=== PATIENT | male | born 1985 | race Caucasian/White ===

== ENCOUNTER 2019-10-12 19:38 | Emergency (ER) | payer OTHER, SELFPAY ==
[2019-10-12 19:40] VITALS: BP 149/90; PULSE 97; RESP 20; TEMP 36.9; O2SAT 100
--- NOTE | 2019-10-12 20:18 | ED.URI ---
HPI - URI/Sore Throat General Chief Complaint: Upper Respiratory Infection Stated Complaint: cough/congestion/runny nose Time Seen by Provider: 10/12/19 19:46 Source: patient Mode of arrival: ambulatory Limitations: no limitations History of Present Illness HPI Narrative: This is a 33 year old male that presents to the ER for cold symptoms since this morning. Reports cough, congestion, rhinorrhea, and sore throat. Denies fever, chest pain or shortness of breath. Related Data Allergies Allergy/AdvReac Type Severity Reaction Status Date / Time No Known Allergies Allergy Verified 10/12/19 19:48 Review of Systems Review of Systems: Narrative: CONSTITUTIONAL: Denies fever ENT: Reports rhinorrhea, congestion, sore throat. Denies otalgia. CARDIOVASCULAR: Denies chest pain RESPIRATORY: Reports cough. Denies dyspnea. All systems reviewed & are unremarkable except as noted in HPI and below PMFSH Family History Family History (System 06/10/19 @ 07:52 by Hazel Garcia) Father Gout Social History Social History (System 06/10/19 @ 07:52 by Hazel Garcia) Smoking status: Never smoker Alcohol intake: never Substance use: never Gender identity (if verbalized by the patient): Male Exam Narrative: Exam Narrative: GENERAL: Well-appearing, well-nourished, and in no acute distress. HEAD: Normocephalic, atraumatic. EYES: EOMI. ENT: Nares clear, no rhinorrhea or epistaxis. Mucous membranes moist. Oropharynx without tonsillar hypertrophy exudate or other lesions. Bilateral TMs pearly matute non-bulging NECK: Supple. No adenopathy or masses. CHEST: Clear to auscultation. No respiratory distress. No wheezes rales or rhonchi HEART: Regular rate and rhythm. No murmur heard. Normal peripheral pulses. EXTREMITIES: Normal range of motion. No edema. SKIN: Warm, dry, no rash. NEURO: No focal deficits. Alert and oriented x3. PSYCH: Normal mood and affect Course Vital Signs Vital signs: Vital Signs Temperature 98.5 F 10/12/19 19:40 Pulse Rate 97 10/12/19 19:40 Respiratory Rate 20 10/12/19 19:40 Blood Pressure 149/90 H 10/12/19 19:40 Pulse Oximetry 100 10/12/19 19:40 Temperature 98.5 F 10/12/19 19:40 Pulse Rate 97 10/12/19 19:40 Respiratory Rate 20 10/12/19 19:40 Blood Pressure 149/90 H 10/12/19 19:40 Pulse Oximetry 100 10/12/19 19:40 MDM - URI/Sore Throat MDM Narrative Medical decision making narrative: Patient presents the emergency department for cold symptoms since this morning. He is afebrile and nontoxic-appearing. Lungs are clear on exam. Influenza screen is negative. Patient was instructed on symptomatic care of viral infection. He is to follow-up with primary care doctor. He was given warnings to return to the ER Lab Data Attestation: I reviewed the patient's lab results. Labs: Influenza A Screen Negative Reference Range: Negative Influenza B Screen Negative Reference Range: Negative Critical Care Time Critical Care Time Critical Care Time: No Discharge Plan Discharge Clinical Impression: Upper respiratory infection Qualifiers: URI type: unspecified viral URI Qualified Code(s): J06.9 - Acute upper respiratory infection, unspecified Patient Disposition: Home, Self-Care Condition: Stable Instructions: Cold Symptoms (ED) Additional Instructions: Return to the emergency department for worsening symptoms, or any other concerns Remain well-hydrated, get plenty of rest. Take Tylenol or Motrin [id number] for pain as needed. Flonase for nasal congestion. Zyrtec for runny nose. Lozenges or Chloraseptic spray for sore throat. Follow up with your primary care doctor Follow-up/Referrals: Lalito Baldwin MD [Primary Care Provider] - 3 Days
== END 2019-10-12 20:42 | disposition home or self-care (01) ==
PROVIDERS: Emergency Provider Emergency Medicine; PCP Family Medicine
DX: J06.9 Acute upper respiratory infection, unspecified (principal); M10.9 Gout, unspecified
CPT/HCPCS: 87804; 99283

== ENCOUNTER 2020-12-03 21:20 | Emergency (ER) | payer OTHER, SELFPAY ==
--- NOTE | ~2020-12-03 | XR_ITS ---
EXAMINATION: XR ankle LT min 3V DATE: 12/03/2020 21:46 INDICATION: Lateral ankle pain. TECHNIQUE: 4 views of left ankle were obtained. COMPARISON: None. FINDINGS: Bone alignment is normal. No fracture. Joint spaces are normal. There are enthesophytes at the posterior and plantar aspects of calcaneal tuberosity. There is ankle soft tissue swelling. IMPRESSION: 1. No fracture. Reviewed, dictated and finalized at location A. IMPRESSION: 1. No fracture.
[2020-12-03 21:22] VITALS: BP 146/90; PULSE 95; RESP 18; TEMP 36; O2SAT 98
--- NOTE | 2020-12-03 22:32 | ED.LOWEXIN ---
HPI - Extremity Injury (Lower) General Chief Complaint: Extremity Injury, Lower Stated Complaint: left ankle injury - missed a step and rolled it Time Seen by Provider: 12/03/20 22:24 Source: patient Mode of arrival: ambulatory Limitations: no limitations History of Present Illness HPI Narrative: 34-year-old with no major medical problems here with complaints of left ankle pain and swelling. Patient states that he is rolled his ankle while going down the steps. Complains of pain on the midfoot area. He denies any other injuries. MD complaint: ankle injury and foot injury Onset (ago): hour(s) (2) Type of Injury: inversion Place: home Severity: moderate Relieving factors: nothing Exacerbating factors: movement Associated symptoms: swelling Other symptoms: none Related Data Allergies Allergy/AdvReac Type Severity Reaction Status Date / Time No Known Allergies Allergy Verified 12/03/20 21:24 Review of Systems Review of Systems: All systems reviewed & are unremarkable except as noted in HPI and below Constitutional: Constitutional: Reports no additional constitutional complaints Eyes: Eyes: Reports no additional eye complaints ENT: Reports system reviewed and no additional complaints, except as documented Cardiovascular: Cardiovascular: Reports no additional cardiovascular complaints Respiratory: Respiratory: Reports no additional respiratory complaints Gastrointestinal: Gastrointestinal: Reports no additional gastrointestinal complaints Musculoskeletal: Musculoskeletal: Reports as per HPI Integumentary/Breasts: Skin/Breast: Reports system reviewed and no additional complaints, except as docu Neurologic: Reports system reviewed and no additional complaints, except as documented PMFSH Family History Family History Father Gout Social History Social History Smoking status: Never smoker Alcohol intake: never Substance use: never Gender identity (if verbalized by the patient): Male Sexual Orientation (if Verbalized by the Patient): Straight or Heterosexual Exam Narrative: Exam Narrative: GENERAL: Well-appearing, well-nourished, and in no acute distress. HEAD: Normocephalic, atraumatic. EYES: PERRLA and EOMI. NECK: Supple. CHEST: Clear to auscultation. No respiratory distress. HEART: Regular rate and rhythm. No murmur heard. Normal peripheral pulses. ABDOMEN: Soft, nontender, nondistended, normal active bowel sounds. EXTREMITIES: Normal range of motion. No edema.mild STS of the left ankle SKIN: Warm, dry, no rash. NEURO: No focal deficits. Alert and oriented x3. PSYCH: Normal mood and affect. Course Course Emergency Course: Inform patient about his Xray findings , advised him to use wrap , ice and take pain medication as prescribed. Vital Signs Vital signs: Vital Signs Temperature 36.0 C L 12/03/20 21:22 Pulse Rate 95 12/03/20 21:22 Respiratory Rate 18 12/03/20 21:22 Blood Pressure 146/90 H 12/03/20 21:22 Pulse Oximetry 98 12/03/20 21:22 Temperature 36.0 C L 12/03/20 21:22 Pulse Rate 95 12/03/20 21:22 Respiratory Rate 18 12/03/20 21:22 Blood Pressure 146/90 H 12/03/20 21:22 Pulse Oximetry 98 12/03/20 21:22 MDM - Extremity Injury (Lower) Imaging Data Radiologist's impression: ITS Impressions Ankle X-Ray 12/03/20 21:47 IMPRESSION: 1. No fracture. Discharge Plan Discharge Clinical Impression: Ankle sprain and strain Patient Disposition: Home, Self-Care Condition: Stable Instructions: Antibiotic Form, Ankle Sprain (DC) Additional Instructions: MATT , Ice Prescriptions: New ibuprofen 600 mg tablet 600 mg PO TID PRN (Reason: pain) Qty: 20 RF: 0 Follow-up/Referrals: Lalito Baldwin MD [Primary Care Provider] - Time of Disposition: 22:38
== END 2020-12-03 22:48 | disposition home or self-care (01) ==
PROVIDERS: Emergency Provider Family Medicine; PCP Family Medicine
DX: S93.402A Sprain of unspecified ligament of left ankle, initial encounter (principal); S96.912A Strain of unspecified muscle and tendon at ankle and foot level, left foot, initial encounter; X50.9XXA Other and unspecified overexertion or strenuous movements or postures, initial encounter
CPT/HCPCS: 73610; 99283

== ENCOUNTER 2021-09-24 06:56 | Outpatient (CLI) | payer SELFPAY ==
[2021-09-24 08:22] LABS: Basophils Absolute Auto 0.1 K/mm3 (0.0-0.1); Basophils Percent Auto 0.8 % (0.2-1.2); Eosinophils Absolute Auto 0.1 K/mm3 (0-0.3); Eosinophils Percent Auto 2.2 % (0-4.4); Hematocrit 44.3 % (42.0-52.0); Hemoglobin 15.1 g/dL (14.0-18.0); Immature Granulocyte Absolute 0.01 K/mm3 (0.00-0.031); Immature Granulocyte Percent A 0.2 % (0-0.5); Lymphocytes Absolute Auto 2.22 K/mm3 (0.9-3.2); Lymphocytes Percent Auto 37.3 % (18.3-44.2); Mean Corpuscular HGB Conc 34.1 g/dl (32-36); Mean Corpuscular Hemoglobin 31.1 pg (26-34); Mean Corpuscular Volume 91.3 fl (80-100); Mean Platelet Volume 10.7 fl (7.4-10.4); Monocytes Absolute Auto 0.4 K/mm3 (0.1-0.6); Monocytes Percent Auto 7.4 % (2.6-8.5); Neutrophils Absolute Auto 3.1 K/mm3 (1.3-6.7); Neutrophils Percent Auto 52.1 % (45.5-73.1); Platelet Count Result 161 k/mm3 (150-375); Red Blood Count 4.85 M/mm3 (4.6-6.20); Red Cell Distribution Width 12.7 % (11.5-14.5)
[2021-09-24 08:39] LABS: Hemoglobin A1C 4.6 % (<5.7)
[2021-09-24 08:53] LABS: Free T4 Free Thyroxine 0.93 ng/mL (0.78-2.19); Vitamin D 25 Hydroxy 39.4 ng/mL
[2021-09-24 09:26] LABS: Creatinine Urine 182.2 mg/dL
[2021-09-24 09:29] LABS: MALB Creatinine Ratio 6.7 mg/g (0-30); Microalbumin Urine Random 12.2 mg/L (0-16.7)
[2021-09-24 14:54] LABS: Alanine Aminotransferase 24 U/L (4-50); Albumin Level 4.7 g/dL (3.5-5.1); Alkaline Phosphatase 74 U/L (38-126); Anion Gap 7 mmol/L (8-16); Aspartate Amino Transferase 24 U/L (17-59); Bilirubin,Total 0.9 mg/dL (0.2-1.3); Blood Urea Nitrogen 14 mg/dL (9-20); Calcium 9.5 mg/dL (8.4-10.2); Carbon Dioxide 32 mmol/L (22-30); Chloride 101 mmol/L (98-107); Cholesterol 174 mg/dL (0-200); Estimated Glomerular Filt Rate > 60; Glucose 112 mg/dL (65-110); HDL Direct 36 mg/dL; Sodium 140 mmol/L (137-145); Triglycerides 70 mg/dL (<150)
[2021-09-24 15:05] LABS: LDL Cholesterol Direct 130 mg/dL
[2021-09-24 15:25] LABS: Prostate Specific Antigen 0.3 ng/mL (< OR = 4.0)
== END 2021-09-24 06:57 | disposition home or self-care (01) ==
LOC: ANHLAB 06:58
PROVIDERS: PCP Family Medicine; Visit Provider Family Medicine
DX: E55.9 Vitamin D deficiency, unspecified (principal); R80.9 Proteinuria, unspecified; I10 Essential (primary) hypertension; Z12.5 Encounter for screening for malignant neoplasm of prostate; Z13.6 Encounter for screening for cardiovascular disorders; Z13.1 Encounter for screening for diabetes mellitus; Z13.29 Encounter for screening for other suspected endocrine disorder; Z13.220 Encounter for screening for lipoid disorders; Z13.0 Encounter for screening for diseases of the blood and blood-forming organs and certain disorders involving the immune mechanism
CPT/HCPCS: 36415; 80053; 80061; 82043; 82306; 83036; 84153; 84439; 84443; 84480; 85025; G0103

== ENCOUNTER 2022-05-15 16:04 | Emergency (ER) | payer SELFPAY ==
--- NOTE | ~2022-05-15 | XR_ITS ---
EXAMINATION: XR abdomen/kub 1V DATE: 05/15/2022 22:47 INDICATION: Upper abdominal pain TECHNIQUE: A supine view of the abdomen on 2 radiographs was obtained. COMPARISON: None. FINDINGS: Moderate amount of gas and stool scattered throughout the colon. No dilated loops of gas-filled bowel to suggest obstruction. A few large faceted gallstones in the right upper quadrant. Several phleboli ths in the left hemipelvis. Lung bases are clear. Heart size is normal. Bones and soft tissues are un remarkable. IMPRESSION: 1. Cholelithiasis. 2. Normal bowel gas pattern. Reviewed, dictated and finalized at location A.
[2022-05-15 17:00] VITALS: BP 142/92; PULSE 48; RESP 18; TEMP 36.3; O2SAT 100
[2022-05-15 17:19] LABS: Basophils Absolute Auto 0.1 K/mm3 (0.0-0.1); Basophils Percent Auto 0.5 % (0.2-1.2); Eosinophils Absolute Auto 0.1 K/mm3 (0-0.3); Eosinophils Percent Auto 0.9 % (0-4.4); Hematocrit 40.7 % (42.0-52.0); Hemoglobin 14.6 g/dL (14.0-18.0); Immature Granulocyte Absolute 0.03 K/mm3 (0.00-0.031); Immature Granulocyte Percent A 0.3 % (0-0.5); Lymphocytes Absolute Auto 1.36 K/mm3 (0.9-3.2); Mean Corpuscular HGB Conc 35.9 g/dl (32-36); Mean Corpuscular Hemoglobin 30.9 pg (26-34); Monocytes Absolute Auto 0.4 K/mm3 (0.1-0.6); Monocytes Percent Auto 3.9 % (2.6-8.5); Neutrophils Absolute Auto 7.8 K/mm3 (1.3-6.7); Neutrophils Percent Auto 80.4 % (45.5-73.1); Platelet Count Result 187 k/mm3 (150-375); Red Blood Count 4.73 M/mm3 (4.6-6.20); Red Cell Distribution Width 12.5 % (11.5-14.5); White Blood Count 9.7 K/mm3 (4.5-10.0)
[2022-05-15 17:35] LABS: Alanine Aminotransferase 30 U/L (6-50); Albumin Level 4.6 g/dL (3.5-5.1); Alkaline Phosphatase 79 U/L (38-126); Anion Gap 9 mmol/L (8-16); Aspartate Amino Transferase 27 U/L (17-59); Bilirubin,Total 0.8 mg/dL (0.2-1.3); Blood Urea Nitrogen 12 mg/dL (9-20); Calcium 9.1 mg/dL (8.4-10.2); Carbon Dioxide 30 mmol/L (22-30); Chloride 99 mmol/L (98-107); Estimated CRCL calculation 124 ml/min; Estimated Glomerular Filt Rate > 60; Glucose 131 mg/dL (65-110); Potassium 4.3 mmol/L (3.4-5.0); Sodium 138 mmol/L (137-145)
[2022-05-15 18:32] LABS: Add Urine Microscopic? YES; Amorphous Sediment Urine Moderate; Appearance Urine Cloudy (Clear); Bacteria Urine Trace /hpf; Bilirubin Urine Negative (Negative); Blood Urine Negative (Negative); Color Urine Yellow (Yellow); Glucose Urine UA Negative (Negative); Ketones Urine Negative (Negative); Leukocyte Esterase Ur Negative LEU/UL (Negative); Mucus Urine Rare /lpf; Nitrate Urine Negative (Negative); Protein Urine Negative (Negative); Specific Grav Ur 1.019 (1.001-1.035); Urobilinogen Urine Negative mg/dL (<2.0); WBC Urine 0-3 /hpf
--- NOTE | 2022-05-15 22:37 | ED.ABDPAIN ---
HPI - Abdominal Pain General Chief Complaint: Abdominal Pain Stated Complaint: Right Flank Pain, Vomiting Time Seen by Provider: 05/15/22 22:29 History of Present Illness HPI narrative: 36-year-old male with no medical problems presents to the emergency room for evaluation of periumbilical/epigastric pain that began several hours prior to arrival. Pain was associated with nausea multiple episodes of nonbilious nonbloody vomiting. Denies any diarrhea or constipation. Denies dysuria or fevers. Patient states that the pain resolved while he was waiting in the waiting room to be seen. Patient insists to continue evaluation to figure out what was causing me the pain. Denies any abdominal surgeries. Related Data Home Medications Medication Instructions Recorded Confirmed No Home Medications 05/15/22 05/15/22 Allergies Allergy/AdvReac Type Severity Reaction Status Date / Time No Known Allergies Allergy Verified 05/15/22 17:03 Review of Systems Review of Systems: CONSTITUTIONAL: Denies fever, chills, or sweats. EYES: Denies visual changes, redness, or discharge. ENT: Denies rhinorrhea, congestion, sore throat, or otalgia. CARDIOVASCULAR: Denies chest pain, palpitations, or edema. RESPIRATORY: Denies cough or dyspnea. GASTROINTESTINAL: Reports abdominal pain, nausea, vomiting, denies diarrhea or constipation GENITOURINARY: Denies dysuria or hematuria. SKIN: Denies rash or itching. MUSCULOSKELETAL: Denies back pain, joint pain, or myalgia. NEUROLOGIC: Denies headache, numbness, dizziness, or weakness. PSYCHIATRIC: Denies anxiety or depression. PMFSH Family History Family History Father Gout Social History Social History Smoking status: Never smoker Alcohol intake: never Substance use: never Gender identity (if verbalized by the patient): Male Sexual Orientation (if Verbalized by the Patient): Straight or Heterosexual Exam Narrative: GENERAL: Well-appearing, well-nourished, no physical limitations, and in no acute distress. HEAD: Normocephalic, atraumatic. EYES: Conjunctivae normal, PERRLA and EOMI. CHEST: Clear to auscultation. No respiratory distress. No wheezes rales or rhonchi. No tenderness. HEART: Regular rate and rhythm. No murmur heard. Normal peripheral pulses. ABDOMEN: Soft, nontender, nondistended, normal active bowel sounds. BACK: No CVA tenderness EXTREMITIES: Normal range of motion. No edema. No clubbing or cyanosis SKIN: Warm, dry, no rash. No noted wounds NEURO: No focal deficits. Alert and oriented x3. MAEW. CN's II-XI intact bilaterally, normal gait PSYCH: Cooperative. Normal mood and affect. Course Vital Signs Vital signs: Vital Signs Temperature 36.3 C L 05/15/22 17:00 Pulse Rate 48 L 05/15/22 17:00 Respiratory Rate 18 05/15/22 17:00 Blood Pressure 142/92 H 05/15/22 17:00 Pulse Oximetry 100 05/15/22 17:00 Oxygen Delivery Room Air 05/15/22 17:00 Temperature 36.3 C L 05/15/22 17:00 Pulse Rate 48 L 05/15/22 17:00 Respiratory Rate 18 05/15/22 17:00 Blood Pressure 142/92 H 05/15/22 17:00 Pulse Oximetry 100 05/15/22 17:00 Oxygen Delivery Room Air 05/15/22 17:00 MDM - Abdominal Pain MDM Narrative Medical decision making narrative: 36-year-old male presents the emergency room for complaints of upper abdominal pain that started just prior to arrival. Patient waited in the waiting room for 6 hours, and when he came back to the department be evaluated his abdominal pain had resolved. Patient was still requested to be evaluated to see what the cause of the pain was. CBC CMP and lipase were all within normal limits. KUB shows a moderate to severe fecal load in his upper abdomen. Discussed findings with patient, said he just needs to have a couple bowel movements and he is going to feel better. Lab Data Result diagrams: 05/15/22
[2022-05-15 22:40] VITALS: BP 122/84; PULSE 50; RESP 16; O2SAT 100
[2022-05-15 22:48] LABS: Lipase 45 U/L (23-300)
== END 2022-05-15 23:26 | disposition home or self-care (01) ==
PROVIDERS: Emergency Medicine; Emergency Provider Nurse Practitioner Family; PCP Family Medicine
DX: R10.13 Epigastric pain (principal); R10.33 Periumbilical pain
CPT/HCPCS: 36415; 74018; 80053; 81001; 83690; 85025; 99283

== ENCOUNTER 2022-11-23 00:59 | Emergency (ER) | payer OTHER, SELFPAY ==
--- NOTE | ~2022-11-23 | XR_ITS ---
EXAMINATION: XR chest 1V portable DATE: 11/23/2022 01:44 INDICATION: Upper respiratory infection. TECHNIQUE: A single frontal view of the chest was obtained. COMPARISON: CT abdomen and pelvis 10/30/2015 FINDINGS: There is no pneumonia, pleural effusion, or pneumothorax. The heart size is normal. IMPRESSION: 1. No acute cardiopulmonary disease. Reviewed, dictated and finalized at location A.
[2022-11-23 01:03] VITALS: BP 143/86; PULSE 82; RESP 14; TEMP 36.7; O2SAT 99
[2022-11-23 02:31] LABS: Influenza A QL RT-PCR Positive (Negative); Influenza B QL RT-PCR Negative (Negative); SARS-CoV-2 RNA PCR Negative (Negative)
[2022-11-23 02:40] VITALS: PULSE 63; RESP 18
[2022-11-23] MEDS: IPRATROPIUM BR 0.02% INH SOLN 0.5 MG/2.5 ML VIAL 1 MG INHALATION (02:40)
[2022-11-23] MEDS: ALBUTEROL SULFATE NEB 2.5 MG/3 ML INH 10 MG INHALATION (02:40)
--- NOTE | 2022-11-23 05:02 | ED.GENADULT ---
HPI - General Adult General Chief complaint: Upper Respiratory Infection Stated complaint: URI Time Seen by Provider: 11/23/22 02:04 History of Present Illness HPI narrative: This is a 36-year-old male with a 1 week of URI symptoms. They have included cough, low energy and wheezing. Patient denies fever, sore throat, chest pain, nausea vomiting or diarrhea. patiently typically gets 1 URI a year that requires albuterol treatment for him to improve. No other complaints Related Data Home Medications Medication Instructions Recorded Confirmed No Home Medications 05/15/22 05/15/22 Allergies Allergy/AdvReac Type Severity Reaction Status Date / Time No Known Allergies Allergy Verified 05/15/22 17:03 PMFSH Family History Family History Father Gout Social History Social History Smoking status: Never smoker Alcohol intake: never Substance use: never Living arrangements: with family Gender identity (if verbalized by the patient): Male Sexual Orientation (if Verbalized by the Patient): Straight or Heterosexual Exam Narrative: APPEARANCE: No apparent distress. resting comfortably in bed Head: atraumatic. EYES: EOMI, NOSE: Atraumatic NECK: Trachea midline RESPIRATORY: No increased rate of breathing, slight end expiratory wheezing CARDIOVASCULAR: RRR, ABDOMINAL: Non-distended MUSCULOSKELETAl: No obvious deformities NEURO: Alert. Moving 4/4 extremities SKIN:: Warm, dry. Normal color PSYCHIATRIC: Normal affect Course Vital Signs Vital signs: Vital Signs Temperature 98.0 F 11/23/22 01:03 Pulse Rate 82 11/23/22 01:03 Respiratory Rate 14 11/23/22 01:03 Blood Pressure 143/86 H 11/23/22 01:03 Pulse Oximetry 99 11/23/22 01:03 Oxygen Delivery Room Air 11/23/22 01:03 Temperature 98.0 F 11/23/22 01:03 Pulse Rate 63 11/23/22 02:40 Respiratory Rate 18 11/23/22 02:40 Blood Pressure 143/86 H 11/23/22 01:03 Pulse Oximetry 99 11/23/22 01:03 Oxygen Delivery Room Air 11/23/22 01:03 Medical Decision Making MDM Narrative Medical decision making narrative: -Presentation: 36-year-old male presenting with URI symptoms and slight wheezing -DDX includes but is not limited to: viral syndrome, bronchitis, reactive airway disease -Co-morbidities complicating care: reactive airway disease -Social determinants of health: patient works as a service delivery director lives with his . -External Chart Review: None -Hx from independent Sources: none -Discussion of Management/Consultants: none -Independent interpretation of studies: chest x-ray showed no acute cardiopulmonary process. Dx tests considered but not ordered: -Procedures: -Interventions: 10 mg IM dexamethasone, Motrin, Tylenol, hour long DuoNeb treatment -Shared decision making / Disposition: on re-evaluation the patient is feeling better. His wheezing has resolved. He will be discharged with an inhaler -RX albuterol Vital Signs Vital Signs: Vital Signs Temperature 98.0 F 11/23/22 01:03 Pulse Rate 82 11/23/22 01:03 Respiratory Rate 14 11/23/22 01:03 Blood Pressure 143/86 H 11/23/22 01:03 Pulse Oximetry 99 11/23/22 01:03 Oxygen Delivery Room Air 11/23/22 01:03 Temperature 98.0 F 11/23/22 01:03 Pulse Rate 63 11/23/22 02:40 Respiratory Rate 18 11/23/22 02:40 Blood Pressure 143/86 H 11/23/22 01:03 Pulse Oximetry 99 11/23/22 01:03 Oxygen Delivery Room Air 11/23/22 01:03 Lab Data Labs: Lab Results 11/23/22 Range/Units 01:50 Influenza A (RT-PCR) Positive (Negative) Influenza B (RT-PCR) Negative (Negative) SARS-CoV-2 RNA (RT-PCR) Negative (Negative) Discharge Plan Discharge Clinical Impression: Mild reactive airways disease Patient Disposition: Home, Self-Care Condition: Stable Instru
== END 2022-11-23 04:57 | disposition home or self-care (01) ==
PROVIDERS: Emergency Provider Emergency Medicine; PCP Family Medicine
DX: J45.909 Unspecified asthma, uncomplicated (principal); Z20.822 Contact with and (suspected) exposure to COVID-19
CPT/HCPCS: 71045; 87636; 94640; 96372; 99283; J1100

== ENCOUNTER 2022-12-30 11:32 | Outpatient (CLI) | payer OTHER, SELFPAY ==
[2022-12-30 12:03] LABS: Basophils Absolute Auto 0.1 K/mm3 (0.0-0.1); Basophils Percent Auto 0.8 % (0.2-1.2); Eosinophils Absolute Auto 0.1 K/mm3 (0-0.3); Eosinophils Percent Auto 1.9 % (0-4.4); Hematocrit 38.1 % (42.0-52.0); Hemoglobin 13.3 g/dL (14.0-18.0); Immature Granulocyte Absolute 0.02 K/mm3 (0.00-0.031); Immature Granulocyte Percent A 0.3 % (0-0.5); Lymphocytes Percent Auto 32.8 % (18.3-44.2); Mean Corpuscular HGB Conc 34.9 g/dl (32-36); Mean Corpuscular Volume 88.8 fl (80-100); Mean Platelet Volume 9.9 fl (7.4-10.4); Monocytes Absolute Auto 0.4 K/mm3 (0.1-0.6); Monocytes Percent Auto 5.6 % (2.6-8.5); Neutrophils Absolute Auto 3.8 K/mm3 (1.3-6.7); Neutrophils Percent Auto 58.6 % (45.5-73.1); Platelet Count Result 177 k/mm3 (150-375); Red Blood Count 4.29 M/mm3 (4.6-6.20); Red Cell Distribution Width 12.8 % (11.5-14.5); White Blood Count 6.4 K/mm3 (4.5-10.0)
[2022-12-30 12:16] LABS: Alanine Aminotransferase 39 U/L (6-50); Albumin Level 4.5 g/dL (3.5-5.1); Alkaline Phosphatase 53 U/L (38-126); Anion Gap 5 mmol/L (8-16); Aspartate Amino Transferase 31 U/L (17-59); Bilirubin,Total 0.9 mg/dL (0.2-1.3); Blood Urea Nitrogen 12 mg/dL (9-20); Calcium 8.7 mg/dL (8.4-10.2); Carbon Dioxide 30 mmol/L (22-30); Chloride 103 mmol/L (98-107); Cholesterol 200 mg/dL (0-200); Estimated Glomerular Filt Rate > 60; Glucose 114 mg/dL (65-110); HDL Direct 33 mg/dL; Potassium 3.8 mmol/L (3.4-5.0); Sodium 138 mmol/L (137-145); Triglycerides 106 mg/dL (<150)
[2022-12-30 12:27] LABS: LDL Cholesterol Direct 144 mg/dL
[2022-12-30 12:27] LABS: Creatinine Urine 204.3 mg/dL
[2022-12-30 12:31] LABS: MALB Creatinine Ratio 4.2 mg/g (0-30); Microalbumin Urine Random 8.6 mg/L (0-16.7)
[2022-12-30 12:45] LABS: Vitamin D 25 Hydroxy 43.7 ng/mL
[2022-12-30 12:46] LABS: Prostate Specific Antigen 0.4 ng/mL (< OR = 4.0)
--- NOTE | 2022-12-31 09:24 | WPDPFTINT ---
PFT Procedure Performed PFT Procedure Performed Plethysmography (Lung Vol) Diffusing Cap (DLCO) Flow Vol Loop Spirometry w/o Bronchodil PFT Interpretation This is a pulmonary function test with spirometry, plethysmography and diffusing capacity. The test was performed and results interpreted in accordance with the 2019 and 2005 ATS/ERS Task Force guidelines respectively using the Global Lung Function Initiative-2012 reference equations. Patient demonstrated good effort and cooperation. Reproducibility criteria were met. The quality of the spirometry maneuver was Grade A. Findings: Spirometry: The contour the inspiratory and expiratory flow tracing are normal. The FVC is 5.32 L, 101% predicted. The FEV1 is 3.99 L, 93% predicted. The FEV1: FVC ratio 75%. Plethysmography: The total lung capacity is 7.08 L, 102% predicted. The functional residual capacity is 3.48 L, 100% predicted. The residual volume is 1.76 L, 97% predicted. Diffusion capacity: The diffusing capacity unadjusted for hemoglobin and carboxyhemoglobin is 30.1, 91% predicted. Diffusing capacity adjusted for alveolar volume is 4.59, 94% predicted. Impression: The spirometry is normal without evidence of an obstructive abnormality. The lung volumes are normal. The diffusing capacity is normal. There are no prior studies for comparison
[2023-01-04 05:56] LABS: Triiodothyronine T3 Free 3.4 pg/mL (2.3-4.2)
== END 2022-12-30 11:33 | disposition home or self-care (01) ==
LOC: ANHPFT 11:33
PROVIDERS: PCP Family Medicine; Visit Provider Nurse Practitioner Adult Health
DX: J20.9 Acute bronchitis, unspecified (principal); R06.09 Other forms of dyspnea
CPT/HCPCS: 36415; 80053; 80061; 82043; 82306; 84153; 84439; 84443; 84481; 85025; 94375; 94726; 94729; G0103

== ENCOUNTER 2023-04-18 20:39 | Emergency (ER) | payer OTHER, SELFPAY ==
--- NOTE | ~2023-04-18 | XR_ITS ---
XR ankle RT min 3V DATE: 04/18/2023 22:16 INDICATION: Lateral right ankle pain. No injury. TECHNIQUE: 4 views COMPARISON: 06/01/2013 right ankle FINDINGS: Mild posterior calcaneal enthesopathy. No fracture or dislocation of the ankle or disruption of the ankle mortise. No periosteal reaction or bone destruction. Cannot exclude calcaneal cuboid or calcaneal navicular tarsal coalition. Consider CT examination for further evaluation. IMPRESSION: Mild posterior calcaneal enthesopathy Cannot exclude calcaneal cuboid or calcaneal navicular tarsal coalition. Consider CT examination for further evaluation. Reviewed, dictated and finalized at location A. IMPRESSION: Mild posterior calcaneal enthesopathy Cannot exclude calcaneal cuboid or calcaneal navicular tarsal coalition. Consid er CT examination for further evaluation.
[2023-04-18 21:35] VITALS: BP 144/91; PULSE 75; RESP 15; TEMP 36.8; O2SAT 100
--- NOTE | 2023-04-18 23:17 | ED.LOWEXIN ---
HPI - Extremity Injury (Lower) General Chief Complaint: Extremity Injury, Lower Stated Complaint: cant put pressure on right foot Time Seen by Provider: 04/18/23 23:16 History of Present Illness HPI Narrative: Patient presents to the emergency department with gradually worsening right lateral foot and ankle pain that started yesterday. Today very severe and patient cannot ambulate on the foot. Foot dorsal region and ankle generally swollen no signs of erythema or warmth. Patient has a history of gout in his right knee. Also his father has a history of gout. He denies fevers and chills. Related Data Allergies Allergy/AdvReac Type Severity Reaction Status Date / Time No Known Allergies Allergy Verified 05/15/22 17:03 Review of Systems Review of Systems: Review of systems negative except for what is documented in the [facility] Family History Family History Father Gout Social History Social History Smoking status: Never smoker Alcohol intake: never Substance use: never Living arrangements: with family Gender identity (if verbalized by the patient): Male Sexual Orientation (if Verbalized by the Patient): Straight or Heterosexual Exam Narrative: GENERAL: Well-appearing, well-nourished, and in no acute distress. HEAD: Normocephalic, atraumatic. EYES: EOMI. ENT: Nares clear, no rhinorrhea or epistaxis. Mucous membranes moist. NECK: Supple. CHEST: Clear to auscultation. No respiratory distress. HEART: Regular rate and rhythm. ABDOMEN: n/a EXTREMITIES: Normal range of motion. No edema. Right foot swelling dorsal lateral and right lateral ankle swelling SKIN: Warm, dry, no rash. NEURO: No focal deficits. Alert and oriented x3. PSYCH: Normal mood and affect. Course Course Emergency Course: Presentation consistent with gout. No fracture on x-ray. Vital Signs Vital signs: Vital Signs Temperature 36.8 C 04/18/23 21:35 Pulse Rate 75 04/18/23 21:35 Respiratory Rate 15 04/18/23 21:35 Blood Pressure 144/91 H 04/18/23 21:35 Pulse Oximetry 100 04/18/23 21:35 Oxygen Delivery Room Air 04/18/23 21:35 Temperature 36.8 C 04/18/23 21:35 Pulse Rate 75 04/18/23 21:35 Respiratory Rate 15 04/18/23 21:35 Blood Pressure 144/91 H 04/18/23 21:35 Pulse Oximetry 100 04/18/23 21:35 Oxygen Delivery Room Air 04/18/23 21:35 Discharge Plan Discharge Clinical Impression: Gout attack Qualifiers: Gout site: foot Gout etiology: idiopathic Laterality: right Qualified Code(s): M10.071 - Idiopathic gout, right ankle and foot Patient Disposition: Home, Self-Care Condition: Stable Instructions: Gout (ED) Prescriptions: New hydrocodone-acetaminophen 5-325 mg tablet 1 tablet PO Q6H PRN (Reason: pain) Qty: 20 0RF colchicine 0.5 mg tablet 0.6 mg PO ONCE Qty: 1 0RF Follow-up/Referrals: Lalito Baldwin MD [Primary Care Provider] - Time of Disposition: 23:19
[2023-04-18] MEDS: IBUPROFEN 600 MG TABLET PO (23:41)
[2023-04-18] MEDS: COLCHICINE 0.6 MG TABLET 1.2 MG PO (23:41)
[2023-04-18] MEDS: HYDROcodone/acetaminophen (*CRX) 5-325 MG TABLET 1 TAB PO (23:41)
== END 2023-04-18 23:50 | disposition home or self-care (01) ==
LOC: ANHED 23:38
PROVIDERS: Emergency Provider Emergency Medicine; PCP Family Medicine
DX: M10.071 Idiopathic gout, right ankle and foot (principal)
CPT/HCPCS: 73610; 99283; A9270

== ENCOUNTER 2023-08-29 14:36 | Emergency (ER) | payer SELFPAY ==
--- NOTE | ~2023-08-29 | XR_ITS ---
EXAMINATION: XR ankle RT min 3V DATE: 08/29/2023 15:54 INDICATION: Right ankle pain and swelling and erythema. TECHNIQUE: 4 views of right ankle were obtained. COMPARISON: Right ankle radiographs 04/18/2023, CTA 10/30/15 FINDINGS: Bone alignment is normal. No fracture. 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 There is mild midfoot osteoarthritis. There is an enthesophyte at posterior aspect of ca lcaneal tuberosity. There is soft tissue swelling of the ankle. IMPRESSION: 1. 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 Reviewed, dictated and finalized at location A. SOCIAL WORK
--- NOTE | ~2023-08-29 | XR_ITS ---
EXAMINATION: XR foot RT min 3V DATE: 08/29/2023 15:54 INDICATION: Right foot pain and swelling and erythema. TECHNIQUE: 3 views of right foot were obtained. COMPARISON: None. FINDINGS: There is mild hallux valgus. No fracture. There is mild osteoarthritis of first metatarsoph alangeal joint and some of the interphalangeal joints and midfoot joints. IMPRESSION: 1. Mild hallux valgus. 2. Mild polyarticular osteoarthritis. 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
[2023-08-29 14:39] VITALS: BP 159/94; PULSE 96; RESP 18; TEMP 36.4; O2SAT 100
--- NOTE | 2023-08-29 15:42 | ED.EXTPRO ---
HPI - Extremity Problem General Chief complaint: Extremity Problem,Nontraumatic Stated complaint: RIght foot Time Seen by Provider: 08/29/23 15:35 Source: patient and old records reviewed Mode of arrival: ambulatory Limitations: no limitations History of Present Illness HPI Narrative: Patient is a 37-year-old male who presents the ED with report of right foot and ankle pain. Patient reports having pain for the last 2-3 days. He notes a history of recurrent gout in his right foot/ ankle and states the pain feels similar to this. States it always presents in the same spot. He has been on several medications in the past for this, including indomethacin, colchicine. He saw his doctor for this this week and was started on allopurinol. States pain initially improved slightly, but has since become worse again. He has not taken anything further for pain. Is scheduled to f/u with his PCP again on Monday, but states he is unable to go to work until then. Difficulty bearing weight due to the pain. Denies numbness/tingling, fevers, injury, wounds, lower extremity swelling, calf pain, history of DVT/PE. Related Data Allergies Allergy/AdvReac Type Severity Reaction Status Date / Time No Known Allergies Allergy Verified 08/29/23 15:45 Review of Systems Review of Systems: CONSTITUTIONAL: Denies fever, chills, or sweats. MUSCULOSKELETAL: See HPI. NEUROLOGIC: Denies numbness, or weakness. All systems reviewed & are unremarkable except as noted in HPI and below PMFSH Family History Family History Father Gout Social History Social History Smoking status: Never smoker Alcohol intake: never Substance use: never Living arrangements: with family Gender identity (if verbalized by the patient): Male Sexual Orientation (if Verbalized by the Patient): Straight or Heterosexual Exam Narrative: GENERAL: Well appearing, well-nourished, non-toxic, in no acute distress. HEAD: Normocephalic, atraumatic. RESPIRATORY: Airway patent, respirations nonlabored. CARDIOVASCULAR: Regular rate and rhythm. Pedal pulses 2+ MUSCULOSKELETAL: Moves all extremities. No gross deformities. No significant tenderness throughout R dorsal foot. Mild TTP along lateral malleoli and in proximal foot inferior to lateral malleoli. Mild swelling noted across anterior lateral foot with erythema present. No significant warmth. No wounds or rashes. Capillary refill intact. Sensation intact. No swelling throughout lower leg. SKIN: Warm, dry, normal color. NEURO: A&O X3. Speech clear. Cranial nerves II-XII grossly intact. No ataxic movements. PSYCHIATRIC: Appropriate mood and affect. Normal interaction. Course Vital Signs Vital signs: Vital Signs Temperature 97.6 F 08/29/23 14:39 Pulse Rate 96 08/29/23 14:39 Respiratory Rate 18 08/29/23 14:39 Blood Pressure 159/94 H 08/29/23 14:39 Pulse Oximetry 100 08/29/23 14:39 Oxygen Delivery Room Air 08/29/23 14:39 Temperature 97.6 F 08/29/23 14:39 Pulse Rate 96 08/29/23 14:39 Respiratory Rate 18 08/29/23 14:39 Blood Pressure 159/94 H 08/29/23 14:39 Pulse Oximetry 100 08/29/23 14:39 Oxygen Delivery Room Air 08/29/23 14:39 MDM - Extremity (Nontraumatic) MDM Narrative Medical decision making narrative: Patient presented to ED with concerns for gout in the right foot/ ankle. History of similar, pain present over the last couple of days. No injury. X-ray of foot and ankle in the ED showing arthritic changes, no acute abnormality or fractures. Reporting previous gout flares have felt very similar. Denied improvement with allopurinol the last couple of days. Has tolerated indomethacin and colchicine in the past. Will resume indomethacin to help with pain as well. Prescription sent to pharmacy. Patient has follow-up with his primary care
[2023-08-29] MEDS: HYDROcodone/acetaminophen (*CRX) 5-325 MG TABLET 1 TAB PO (15:45)
== END 2023-08-29 16:36 | disposition home or self-care (01) ==
PROVIDERS: Emergency Provider Physician Assistant; PCP Family Medicine
DX: M10.9 Gout, unspecified (principal); M19.90 Unspecified osteoarthritis, unspecified site
CPT/HCPCS: 73610; 73630; 99283; A9270

== ENCOUNTER 2024-02-11 19:54 | Emergency (ER) | payer SELFPAY ==
--- NOTE | ~2024-02-11 | XR_ITS ---
Left ankle Technique: AP, oblique, and lateral views were obtained. Clinical History: Injury Findings: No acute fracture or dislocation is seen. Osseous alignment is anatomic. Ankle mortise and other visualized joint spaces are preserved. Soft tissues are otherwise unremarkable. Impression: Unremarkable left ankle. Reviewed, dictated and finalized at location . Impression: Unremarkable left ankle.
[2024-02-11 20:01] VITALS: BP 142/93; PULSE 80; RESP 18; TEMP 36.6; O2SAT 99
--- NOTE | 2024-02-11 23:11 | ED.GENADULT ---
HPI - General Adult General Chief complaint: Extremity Injury, Lower Stated complaint: L foot injury Time Seen by Provider: 02/11/24 22:12 History of Present Illness HPI narrative: 38-year-old male presents to the emergency department for evaluation of left ankle pain. Patient states he rolled his ankle and Monday. Patient initially after the injury he was able to weightbear on it but over the next few hours he continued worsened. Patient states the pain and swelling has continued worsened since Monday. Patient has been using crutches for limited weight-bearing. Patient denies any other pain or injury. Patient reports ankle pain but denies any proximal tib-fib or foot pain. Related Data Allergies Allergy/AdvReac Type Severity Reaction Status Date / Time No Known Allergies Allergy Verified 02/11/24 20:04 Review of Systems Review of Systems: All systems reviewed & are unremarkable except as noted in HPI and below PMFSH Family History Family History Father Gout Social History Social History Smoking status: Never smoker Alcohol intake: never Substance use: never Living arrangements: with family Gender identity (if verbalized by the patient): Male Sexual Orientation (if Verbalized by the Patient): Straight or Heterosexual Exam Narrative: APPEARANCE: Well appearing, no pain, no distress, well-nourished. HEAD: normocephalic, atraumatic. EYES: PERRLA/EOMI, conjunctivae clear. NOSE: Normal no drainage EARS:TMS clear with good light reflex. THROAT: Pharynx clear, no exudate. NECK: Supple. No adenopathy, no masses. RESPIRATORY: Airway patent, respirations nonlabored. Clear to auscultation bilaterally, no rales, rhonchi, wheezing. CARDIOVASCULAR: Regular rate and rhythm without murmurs rubs or gallops. ABDOMINAL: Soft, nontender, nondistended, normal bowel sounds MUSCULOSKELETAL: Left ankle swelling NEURO: Alert. Cranial nerves II through XII intact. SKIN: Warm, dry. Normal Color Course Vital Signs Vital signs: Vital Signs Temperature 97.9 F 02/11/24 20:01 Pulse Rate 80 02/11/24 20:01 Respiratory Rate 18 02/11/24 20:01 Blood Pressure 142/93 H 02/11/24 20:01 Pulse Oximetry 99 02/11/24 20:01 Oxygen Delivery Room Air 02/11/24 20:01 Temperature 97.9 F 02/11/24 20:01 Pulse Rate 68 02/12/24 00:12 Respiratory Rate 16 02/12/24 00:12 Blood Pressure 135/78 02/12/24 00:12 Pulse Oximetry 98 02/12/24 00:12 Oxygen Delivery Room Air 02/11/24 20:01 Medical Decision Making MDM Narrative Medical decision making narrative: 38-year-old male presents emergency department for evaluation for ankle pain. X-ray was negative for acute fracture dislocation. Patient has no tenderness over his foot. Patient has no proximal tib-fib tenderness. Suspect ankle sprain versus strain. Patient was given Clifford wrap and provided crutches for limited weight-bearing. Patient was encouraged close follow-up with primary care physician along to have follow-up with Orthopedics. All questions concerns were addressed. Vital Signs Vital Signs: Vital Signs Temperature 97.9 F 02/11/24 20:01 Pulse Rate 80 02/11/24 20:01 Respiratory Rate 18 02/11/24 20:01 Blood Pressure 142/93 H 02/11/24 20:01 Pulse Oximetry 99 02/11/24 20:01 Oxygen Delivery Room Air 02/11/24 20:01 Temperature 97.9 F 02/11/24 20:01 Pulse Rate 68 02/12/24 00:12 Respiratory Rate 16 02/12/24 00:12 Blood Pressure 135/78 02/12/24 00:12 Pulse Oximetry 98 02/12/24 00:12 Oxygen Delivery Room Air 02/11/24 20:01 Discharge Plan Discharge Clinical Impression: Ankle sprain and strain Patient Disposition: Home, Self-Care Condition: Stable Instructions: Ankle Sprain (DC), Crutch Instructions (ED) Additional Instructions: Tylenol and ibuprofen for pain con
[2024-02-12 00:12] VITALS: BP 135/78; PULSE 68; RESP 16; O2SAT 98
== END 2024-02-12 00:13 | disposition home or self-care (01) ==
PROVIDERS: Emergency Provider Emergency Medicine; PCP Family Medicine
DX: S93.402A Sprain of unspecified ligament of left ankle, initial encounter (principal); S96.912A Strain of unspecified muscle and tendon at ankle and foot level, left foot, initial encounter; X50.9XXA Other and unspecified overexertion or strenuous movements or postures, initial encounter
CPT/HCPCS: 73610; 99283

== ENCOUNTER 2024-06-11 07:45 | Outpatient (CLI) | payer OTHER, SELFPAY ==
[2024-06-11 08:14] LABS: Basophils Absolute Auto 0.1 K/mm3 (0.0-0.1); Basophils Percent Auto 0.9 % (0.2-1.2); Eosinophils Absolute Auto 0.1 K/mm3 (0-0.3); Eosinophils Percent Auto 2.2 % (0-4.4); Hematocrit 44.3 % (42.0-52.0); Hemoglobin 15.1 g/dL (14.0-18.0); Immature Granulocyte Absolute 0.02 K/mm3 (0.00-0.031); Immature Granulocyte Percent A 0.3 % (0-0.5); Lymphocytes Absolute Auto 1.83 K/mm3 (0.9-3.2); Lymphocytes Percent Auto 31.3 % (18.3-44.2); Mean Corpuscular HGB Conc 34.1 g/dl (32-36); Mean Corpuscular Hemoglobin 30.8 pg (26-34); Mean Corpuscular Volume 90.2 fl (80-100); Monocytes Absolute Auto 0.5 K/mm3 (0.1-0.6); Monocytes Percent Auto 8.4 % (2.6-8.5); Neutrophils Absolute Auto 3.3 K/mm3 (1.3-6.7); Neutrophils Percent Auto 56.9 % (45.5-73.1); Platelet Count Result 202 k/mm3 (150-375); Red Blood Count 4.91 M/mm3 (4.6-6.20); Red Cell Distribution Width 12.4 % (11.5-14.5); White Blood Count 5.9 K/mm3 (4.5-10.0)
[2024-06-11 08:25] LABS: Alanine Aminotransferase 40 U/L (6-50); Albumin Level 4.7 g/dL (3.5-5.1); Alkaline Phosphatase 59 U/L (38-126); Anion Gap 8 mmol/L (4-12); Aspartate Amino Transferase 32 U/L (17-59); Bilirubin,Total 1.4 mg/dL (0.2-1.3); Blood Urea Nitrogen 13 mg/dL (9-20); Calcium 9.5 mg/dL (8.4-10.2); Carbon Dioxide 33 mmol/L (22-30); Chloride 99 mmol/L (98-107); Cholesterol 202 mg/dL (0-200); Estimated Glomerular Filt Rate > 60; Glucose 116 mg/dL (65-110); HDL Direct 37 mg/dL; Potassium 4.3 mmol/L (3.4-5.0); Sodium 140 mmol/L (137-145); Triglycerides 75 mg/dL (<150); Uric Acid 9.4 mg/dL (3.5-8.5)
[2024-06-11 08:36] LABS: LDL Cholesterol Direct 133 mg/dL
[2024-06-11 08:41] LABS: Hemoglobin A1C 4.8 % (<5.7)
[2024-06-11 08:54] LABS: Prostate Specific Antigen 0.4 ng/mL (< OR = 4.0)
== END 2024-06-11 07:46 | disposition home or self-care (01) ==
PROVIDERS: PCP Family Medicine; Visit Provider Registered Nurse
DX: E78.5 Hyperlipidemia, unspecified (principal); R73.01 Impaired fasting glucose; Z12.5 Encounter for screening for malignant neoplasm of prostate; M10.9 Gout, unspecified; I10 Essential (primary) hypertension
CPT/HCPCS: 36415; 80053; 80061; 83036; 84153; 84550; 85025; G0103

== ENCOUNTER 2024-08-22 13:28 | Emergency (ER) | payer OTHER, SELFPAY ==
--- NOTE | ~2024-08-22 | XR_ITS ---
EXAMINATION: XR ankle LT min 3V DATE: 08/22/2024 14:06 INDICATION: Left ankle pain. Fall. TECHNIQUE: 4 views of left ankle were obtained. COMPARISON: Left ankle radiographs 02/11/2024 FINDINGS: Bone alignment is normal. There is an avulsion fracture of dorsal aspect of head of talus. Joint spaces are normal. There are enthesophytes at the posterior and plantar aspects of calcaneal tu berosity. Ankle soft tissue swelling is noted. IMPRESSION: 1. Avulsion fracture of dorsal aspect of head of talus, new from 02/11/2024. Reviewed, dictated and finalized at location B. L BLENDER
[2024-08-22 13:57] VITALS: BP 134/93; PULSE 90; RESP 16; TEMP 37; O2SAT 100
--- NOTE | 2024-08-22 14:17 | ED_ITS ---
HPI - Extremity Injury (Lower) General Chief Complaint: Extremity Injury, Lower Stated Complaint: Injured Left Ankle Time Seen by Provider: 08/22/24 14:12 Source: patient and RN notes reviewed Mode of arrival: ambulatory (With crutches) Limitations: no limitations History of Present Illness HPI Narrative: Patient presents today with left ankle injury. Three days ago he fell on ice and hyperextended his ankle. He was ambulatory for the 1st couple of days but yesterday started using crutches due to increased pain. Denies numbness or tingling in the leg or foot. Denies pain in the foot. He has been using ice and ibuprofen with mild relief. Currently rates his pain 5/10. Related Data Home Medications ?Medication ?Instructions ?Recorded ?Confirmed ?Last Taken ?Type allopurinol 300 mg tablet mg 08/22/24 Unknown History losartan 100 mg tablet mg 08/22/24 Unknown History Allergies Allergy/AdvReac Type Severity Reaction Status Date / Time No Known Allergies Allergy Verified 08/22/24 13:59 Review of Systems Review of Systems: CONSTITUTIONAL: Denies body aches, fever, chills, or sweats. EYES: Denies visual changes, redness, or discharge. ENT: Denies rhinorrhea, congestion, sore throat, or otalgia. CARDIOVASCULAR: Denies chest pain, palpitations, or edema. RESPIRATORY: Denies cough or dyspnea. GASTROINTESTINAL: Denies abdominal pain, nausea, vomiting, or diarrhea. GENITOURINARY: Denies dysuria or hematuria. SKIN: Denies rash, itching, or wounds. MUSCULOSKELETAL: + left ankle injury NEUROLOGIC: Denies headache, numbness, tingling, or weakness. PSYCH: Denies depression or anxiety. [facility] Family History Family History Father Gout Social History Social History Smoking status: Never smoker Alcohol intake: never Substance use: never Living arrangements: with family Gender identity (if verbalized by the patient): Male Sexual Orientation (if Verbalized by the Patient): Straight or Heterosexual Comments At time of signature, I have reviewed and agree with nursing past medical, surgical, social and family history unless otherwise noted. Please see nursing chart for further information. There is no relevant family history pertinent to the presenting complaint Exam Narrative: GENERAL: Well-appearing, well-nourished, and in no acute distress. HEAD: Normocephalic, atraumatic. EYES: EOMI. No redness or drainage. Conjunctivae normal. ENT: Mucous membranes pink and moist. NECK: Normal AROM. CHEST: No respiratory distress. EXTREMITIES: Left ankle: Moderate edema and ecchymosis generally about the ankle with tenderness laterally and posteriorly. Very mild tenderness medially. No tenderness to the foot. Sensation intact in all 5 toes. Capillary refill normal. Pedal pulse normal. Decreased range of motion of the ankle due to pain and swelling. SKIN: Warm, dry, no rash. Capillary refill normal. Normal skin turgor. NEURO: No focal deficits. Alert and oriented x3. PSYCH: Normal affect. No signs of depression or anxiety. Course Course Level of Care: Express Care Visit Vital Signs Vital signs: Vital Signs Temperature 98.6 F 08/22/24 13:57 Pulse Rate 90 08/22/24 13:57 Respiratory Rate 16 08/22/24 13:57 Blood Pressure 134/93 H 08/22/24 13:57 Pulse Oximetry 100 08/22/24 13:57 Temperature 98.6 F 08/22/24 13:57 Pulse Rate 90 08/22/24 13:57 Respiratory Rate 16 08/22/24 13:57 Blood Pressure 134/93 H 08/22/24 13:57 Pulse Oximetry 100 08/22/24 13:57 Reviewed MDM - Extremity Injury (Lower) MDM Narrative Medical decision making narrative: X-ray shows avulsion fracture of the dorsal aspect the head of the talus with soft tissue swelling. Clifford wrap applied. Anticipatory guidance given. Differential Diagnosis Differential diagnosis: Likely ankle sprain and strain and ankle fracture Imaging Data Radiologist's impression: ITS Impressions Ankle X-Ray 08/22/24 14:08 IMPRESSION: 1. Avulsion fracture of dorsal aspect of head of talus, new from 02/11/2024. Critical Care Time Critical Care Time Critical Care Time: No Discharge Plan Discharge Clinical Impression: Avulsion fracture of left talus Patient Disposition: Home, Self-Care Condition: Stable Instructions: Avulsion Fracture (ED) Additional Instructions: Your x-ray shows a chip fracture of your ankle. Wear the Clifford wrap for comfort and compression. Elevate and ice your ankle. Take Tylenol or ibuprofen for pain, if able. Use crutches while painful, and advance your activity as tolerated. Follow-up with your PCP or orthopedic physician in 1 week if symptoms are not improving. Your blood pressure was elevated above 120/80 today at Urgent Care. This puts you above the threshold for follow up. Please schedule a followup visit with your personal physician as soon as possible, for further evaluation and treatment. Even blood pressure exceeding 120/80 may indicate pre-hypertension. Patient Language: Spanish Prescriptions: No Action allopurinol 300 mg tablet losartan 100 mg tablet hydrocodone-acetaminophen 5-325 mg tablet 1 tablet PO Q6H PRN (Reason: pain) Qty: 20 0RF colchicine (cardiac) 0.5 mg tablet 0.6 mg PO ONCE Qty: 1 0RF indomethacin 50 mg capsule 50 mg PO TID 10 Days Qty: 30 0RF Rx Instructions: administer with food or milk Follow-up/Referrals: Chandra Martínez MD [Physician] - Lalito Baldwin MD [Primary Care Provider] - Stand Alone Forms: Work/School Release IP Time of Disposition: 14:24
== END 2024-08-22 14:38 | disposition home or self-care (01) ==
PROVIDERS: Emergency Provider Nurse Practitioner; PCP Family Medicine
DX: S92.122A Displaced fracture of body of left talus, initial encounter for closed fracture (principal); W00.9XXA Unspecified fall due to ice and snow, initial encounter
CPT/HCPCS: 73610; 99214; G0463

== ENCOUNTER 2025-06-22 18:33 | Emergency (ER) | payer OTHER, SELFPAY ==
--- NOTE | ~2025-06-22 | XR_ITS ---
EXAMINATION: XR chest 2V, 06/22/2025 19:22 [facility] HISTORY: CHEST PAIN COMPARISON: No comparisons available. Technique: 2 views obtained. Findings: The lungs are clear, no effusion. No pneumothorax. Heart is normal size. Mediastinal and hilar contours are within normal limits. Bony thorax no acute abnormality. Impression: No acute cardiopulmonary abnormality. Reviewed, dictated and finalized at location [facility] Impression: No acute cardiopulmonary abnormality.
--- NOTE | 2025-06-22 18:35 | ECG_ITS ---
Test Date: 2025-06-22 18:44:55 Measurements Intervals [place] Rate: 75 P: 7 WV: 153 QRS: 21 QRSD: 110 T: -7 QT: 363 QTc: 407 Interpretive Statements SINUS RHYTHM MODERATE VOLTAGE CRITERIA FOR LVH, CONSIDER NORMAL VARIANT [MEETS CRITERIA IN ONE OF: R(aVL), S(V1), R(V5), R(V5/V6)+S(V1)] NONSPECIFIC T-WAVE ABNORMALITY No previous ECG available for comparison Electronically Signed On 06-22-2025 20:00:21 FITNESS CONSULTANT by James Lilly M.D.
[2025-06-22 18:37] VITALS: BP 148/104; PULSE 73; RESP 16; TEMP 36.7; O2SAT 100
[2025-06-22 18:43] VITALS: O2SAT 99
--- OUTSIDE RECORDS SUMMARY | 2025-06-22 19:27 | XMS_ITS | Clinical Summary ---
Author Organization [facility] [address] Address [address] [place] [address] Care Team Providers Care Concrete Pourer Name Role Phone Lalito Baldwin MD Primary Care Provider [phone] Allergies No known active allergies Medications lisinopril (PRINIVIL,ZESTRI L) 5 mg tablet Take 5 mg by mouth daily Active ibuprofen (ADVIL,MOTRIN) 800 mg tablet Take 1 tablet (800 mg total) by mouth 3 (three) times a day 30 tablet 02/18/2024 Active Medical History Medical History Date Comments Hypertension Asthma Family History Medical History Relation Name Comments Hypertension Father Relation Name Status Comments Father Alive Mother Alive Social History Tobacco Use Types Packs/Day Years Used Date Smoking Tobacco: Never Smokeless Tobacco: Current Alcohol Use Standard Drinks/Week Comments Yes 0 (1 standard drink = 0.6 oz pur e alcohol) ocassionally Personal Safety Answer Date Recorded Have you ever been in or are you currently in a harmful physical or emotional relationship or is someone making you feel afraid or unsafe? 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 [employer] Gender Identity Male 02/18/2024 7:24 PM CDT Sexual Orientation Not on file Last Filed Vital Signs Vital Sign Reading Time Taken Comments Blood Pressure 136/90 02/18/2024 7:30 PM CDT Pulse 68 02/18/2024 7:30 PM CDT Temperature 36.6 C (97.9 F) 02/18/2024 5:12 PM CDT Respiratory Rate 18 02/18/2024 7:30 PM CDT Oxygen Saturation 100% 02/18/2024 7:30 PM CDT Inhaled Oxygen Concentration - - Weight 115 kg (253 lb 8.5 oz) 02/18/2024 5:12 PM CDT Height 185.4 cm (6' 1) 02/18/2024 5:12 PM CDT Body Mass Index 33.45 02/18/2024 5:12 PM CDT Plan of Treatment Health Maintenance Due Date Last Done Comments Depression Screening 1983 Hepatitis C Screening 1985 DTaP/Tdap/Td Vaccine (4 - Tdap) 12/15/1994 10/03/1984, 08/01/1984, 03/28/1984 Varicella Vaccines (1 of 2 - 13+ 2-dose series) 12/15/1996 Hepatitis B Screening 12/15/2001 Regular Well Visit/Exam 18-64 12/15/2001 HPV Vaccines (1 - 3-dose SCD M series) 12/15/2010 Influenza Vaccine (#1) 2025 Pneumococcal vaccine <65 Aged Out No longer eligible based on patient's age to complete this topic Insurance CHOICE PLUS Care Teams Concrete Pourer Relationship Specialty Start Date End Date Lalito Baldwin MD PCP - General Family Medicine 09/03/18
--- NOTE | 2025-06-22 19:32 | ED_ITS ---
HPI - Chest Pain General Chief Complaint: Chest Pain Stated Complaint: cp Time Seen by Provider: 06/22/25 19:02 History of Present Illness HPI narrative: 39-year-old otherwise healthy male presenting to the emergency department with left-sided rib cage pain after a fall 2 days ago. Patient states he was chasing his dog back outside when he fell and landed onto his left chest where he hit his left elbow into his chest wall. He feels like his left ribs bruised her fractured as he is having significant pain with movement and deep breathing. No shortness of breath at rest and no pain without any motion or exertion. States it hurts and tender to palpation and with any twisting coughing or manipulation of the thorax. No bruising the noticed. Pain is localized to the skin and not deep in his chest. Denies any associated nausea, vomiting, diaphoresis, loss of consciousness, back pain, fever, chills, abdominal discomfort or productive cough. Has not tried any medications at home for symptom control. Related Data Home Medications ?Medication ?Instructions ?Recorded ?Confirmed ?Last Taken ?Type allopurinol 300 mg tablet mg 08/22/24 10/29/24 Unknown History losartan 100 mg tablet mg 08/22/24 10/29/24 Unknown History Allergies Allergy/AdvReac Type Severity Reaction Status Date / Time No Known Allergies Allergy Verified 10/29/24 07:37 Review of Systems Review of Systems: As reviewed above in HPI [facility] Past Medical History Medical History Left ankle sprain Family History Family History Father Gout Social History Social History Smoking status: Never smoker Alcohol intake: never Substance use: never Living arrangements: with family Gender identity (if verbalized by the patient): Male Sexual Orientation (if Verbalized by the Patient): Straight or Heterosexual Exam Narrative: GENERAL: [Well-appearing, well-nourished, and in no acute distress.] HEAD: [Normocephalic, atraumatic.] EYES: [PERRLA and EOMI.] ENT: Nares clear, no rhinorrhea or epistaxis. Mucous membranes moist. NECK: Supple. CHEST: Clear to auscultation without any diminished breath sounds. No respiratory distress. Focal tenderness to palpation over the left anterolateral aspect of ribs 4/5 without any overlying skin discoloration or bruising. No step-offs deformities or any crepitus with palpation. No thoracic back pain or midline back pain. HEART: [Regular rate and rhythm]. No murmur heard. [Normal peripheral pulses.] ABDOMEN: [Soft, nondistended], [nontender], [No rigidity or guarding] EXTREMITIES: Normal range of motion. [No edema.] SKIN: Warm, dry, no rash. NEURO: [No focal deficits]. Alert and oriented [x3.] PSYCH: [Normal mood and affect.] Course Vital Signs Vital signs: Vital Signs Temperature 36.7 C 06/22/25 18:37 Pulse Rate 73 06/22/25 18:37 Respiratory Rate 16 06/22/25 18:37 Blood Pressure 148/104 H 06/22/25 18:37 Pulse Oximetry 100 06/22/25 18:37 Temperature 36.7 C 06/22/25 18:37 Pulse Rate 76 06/22/25 20:42 Respiratory Rate 14 06/22/25 20:42 Blood Pressure 139/91 H 06/22/25 20:42 Pulse Oximetry 99 06/22/25 20:42 Oxygen Delivery Room Air 06/22/25 20:04 Fraction of Inspired Oxygen 21 06/22/25 20:04 MDM - Chest Pain MDM Narrative Medical decision making narrative: 39-year-old otherwise healthy male presenting to the emergency department with left-sided rib cage pain after a fall 2 days ago. Patient states he was chasing his dog back outside when he fell and landed onto his left chest where he hit his left elbow into his chest wall. He feels like his left ribs bruised her fractured as he is having significant pain with movement and deep breathing. No shortness of breath at rest and no pain without any motion or exertion. States it hurts and tender to palpation and with any twisting coughing or manipulation of the thorax. No bruising the noticed. Pain is localized to the skin and not deep in his chest. Denies any associated nausea, vomiting, diaphoresis, loss of consciousness, back pain, fever, chills, abdominal discomfort or productive cough. Has not tried any medications at home for symptom control. Clear to auscultation without any diminished breath sounds. No respiratory distress. Focal tenderness to palpation over the left anterolateral aspect of ribs 4/5 without any overlying skin discoloration or bruising. No step-offs deformities or any crepitus with palpation. No thoracic back pain or midline back pain. Patient is hemodynamically stable without any hypoxia or tachyc ardia. Unremarkable blood pressure mildly elevated. Likely rib contusion versus rib fracture. Low suspicion pneumothorax or intrathoracic insult or injury such as pleural effusion, hemothorax or cardiac anomalies. EKG in two- view chest x-ray ordered. He was given multimodal pain control with Toradol, [place], lidocaine patch. Incentive spirometry ordered. Patient will be safe for discharge upon imaging reviewing with multimodal pain control regimen and follow-up instructions asuming no intrathoracic insult. Medical Records Data Attestation: I reviewed the patient's medical records. Imaging Data Attestation: I personally reviewed and interpreted this imaging study as follows: My impression: Impressions Chest X-Ray 06/22/25 19:32 Impression: No acute cardiopulmonary abnormality. Discharge Plan Discharge Clinical Impression: Contusion of rib on left side Patient Disposition: Home Condition: Stable Instructions: Antibiotic Form, Rib Contusion (ED) Additional Instructions: No fractures or intrathoracic injury. Follow the discharge instructions provided for rib contusions which we treat aggressively and similar to rib fractures. Mainstay of treatment is pain control and deep breathing exercises to prevent secondary insult such as collapsing of your lung or pneumonia. Return with any emergencies otherwise follow-up with regular care providers. We have sent you prescription medications for symptom control. Patient Language: Tunisian Prescriptions: New hydrocodone-acetaminophen 5-325 mg tablet 1 tablet PO Q8H PRN (Reason: pain) Qty: 14 0RF acetaminophen [Tylenol Extra Strength] 500 mg tablet 1,000 mg PO TID PRN (Reason: pain) Qty: 30 0RF ketorolac 10 mg tablet 10 mg PO Q8H PRN (Reason: pain) 5 Days Qty: 20 0RF Rx Instructions: maximum total duration of 5 days from all oral, intranasal, or parenteral formulations methocarbamol 750 mg tablet 750 mg PO TID PRN (Reason: pain) Qty: 20 0RF lidocaine 5 % adhesive patch,medicated 1 patch topical DAILY Qty: 15 0RF Rx Instructions: leave on most painful area for up to 12 hrs No Action allopurinol 300 mg tablet losartan 100 mg tablet hydrocodone-acetaminophen 5-325 mg tablet 1 tablet PO Q6H PRN (Reason: pain) Qty: 20 0RF colchicine (cardiac) 0.5 mg tablet 0.6 mg PO ONCE Qty: 1 0RF indomethacin 50 mg capsule 50 mg PO TID 10 Days Qty: 30 0RF Rx Instructions: administer with food or milk Follow-up/Referrals: Lalito Baldwin MD [Primary Care Provider, Family Practice] Stand Alone Forms: Work/School Release IP Time of Disposition: 19:38
[2025-06-22 20:04] VITALS: O2SAT 100
[2025-06-22] MEDS: HYDROcodone/acetaminophen (*CRX) 5-325 MG TABLET 1 TAB PO (20:14)
[2025-06-22] MEDS: KETOROLAC 30 MG/ML VIAL (*BKC) IM (20:15)
[2025-06-22] MEDS: LIDOCAINE 5% PATCH 1 PATCH TRANSDERM (20:16)
[2025-06-22 20:42] VITALS: BP 139/91; PULSE 76; RESP 14; O2SAT 99
== END 2025-06-22 20:46 | disposition home or self-care (01) ==
PROVIDERS: Emergency Provider Student in an Organized Health Care Education/Training Program; PCP Family Medicine
DX: S20.212A Contusion of left front wall of thorax, initial encounter (principal); W18.39XA Other fall on same level, initial encounter; R94.31 Abnormal electrocardiogram [ECG] [EKG]
CPT/HCPCS: 71046; 93005; 96372; 99283; A9270; J1885

== ENCOUNTER 2025-07-08 15:20 | Emergency (ER) | payer OTHER, SELFPAY ==
--- NOTE | 2025-07-08 15:22 | ED.URI ---
HPI - URI/Sore Throat General Chief Complaint: Upper Respiratory Infection Stated Complaint: SORE THROAT/SINUS Time Seen by Provider: 07/08/25 15:33 Source: patient, RN notes reviewed and old records reviewed Mode of arrival: ambulatory Limitations: no limitations History of Present Illness HPI Narrative: 39-year-old male presents to the [facility] with complaints of sinus congestion and a sore throat that started this morning. No treatment for her to arrival. Patient reports a history of strep pharyngitis Treatments prior to arrival: none Related Data Allergies Allergy/AdvReac Type Severity Reaction Status Date / Time No Known Allergies Allergy Verified 07/08/25 15:29 Review of Systems Review of Systems: All systems reviewed & are unremarkable except as noted in HPI and below Constitutional: Constitutional: Reports no additional constitutional complaints ENT: Reports as per HPI, Reports nasal congestion and Reports sore throat Cardiovascular: Cardiovascular: Reports no additional cardiovascular complaints, Denies chest pain and Denies dyspnea Respiratory: Respiratory: Reports no additional respiratory complaints, Denies chest congestion, Denies cough and Denies dyspnea Musculoskeletal: Musculoskeletal: Reports no additional musculoskeletal complaints Integumentary/Breasts: Skin/Breast: Reports system reviewed and no additional complaints, except as docu PMFSH Past Medical History Medical History Left ankle sprain Family History Family History Father Gout Social History Social History Smoking status: Never smoker Alcohol intake: never Substance use: never Living arrangements: with family Gender identity (if verbalized by the patient): Male Sexual Orientation (if Verbalized by the Patient): Straight or Heterosexual Comments At the time of my signature, I reviewed and agree with the nursing past medical, surgical, social, and family history. There is no relevant family history pertinent to the patient complaint. Exam Const: General: cooperative, healthy appearing, comfortable, no acute distress, well developed, alert and well nourished Nutritional Appearance: well nourished Orientation/consciousness: patient oriented x3 Limitations: no limitations HENMT: Head: normal to inspection Ears: hearing grossly normal bilaterally, external ears normal, TM's normal bilaterally, EAC's normal, mastoids normal and no periauricular adenopathy Face and sinus: normal facial exam, sinuses nontender and face symmetric Mouth: Yes Normal oral and palatal mucosa present, Yes lip normal, Yes tongue normal and Yes moist mucous membranes Throat: posterior oropharynx normal, uvula midline and no uvular edema Eyes: General: appearance normal, both eyes and all related structures Alignment and Position: alignment normal Neck: Neck: normal visual inspection, full ROM, no lymphadenopathy and no meningeal signs Chest: Chest palpation & inspection: normal inspection of the chest Resp: Effort & Inspection: normal respiratory effort and able to speak in complete sentences Auscultation: clear to auscultation bilaterally, no crackles, no rales, no rhonchi and no wheezes Cardio: Rate: regular rate Skin: General skin exam: normal color and no rashes or lesions noted Neuro: General: patient oriented x3, gait normal, moves all extremities and no meningeal signs Cognition (Neuro): normal cognition Speech: normal speech Gait exam (Neuro): Normal gait present Extrem: General: normal to inspection, full ROM, capillary refill normal and normal gait Psych: Appearance: grossly normal and well kempt Mental Status: mental status grossly normal Speech and movement: Normal speech and movement present and Clear speech present Affect: normal affect Attitude: cooperative Course Course Level of Care: Express Care Visit Vital Signs Vital signs: Vital Signs Temperature 97.4 F L 07/08/25 15:34 Pulse Rate 84 07/08/25 15:34 Respiratory Rate 16 07/08/25 15:34 Blood Pressure 148/98 H 07/08/25 15:34 Pulse Oximetry 100 07/08/25 15:34 Temperature 97.4 F L 07/08/25 15:34 Pulse Rate 84 07/08/25 15:34 Respiratory Rate 16 07/08/25 15:34 Blood Pressure 148/98 H 07/08/25 15:34 Pulse Oximetry 100 07/08/25 15:34 reviewed MDM MDM Narrative Medical decision making narrative: patient sitting in exam room. Patient is nontoxic, vitals stable. Patient presents with a couple of hours of URI symptoms. Strep test negative. No acute findings noted on exam. Patient is appropriate for outpatient treatment of viral URI Discharge instructions reviewed with patient, as well as provided in writing per nursing staff. The instructions also include specific and strict return/GO TO THE ER as well as f/u information. All questions have been answered, and the patient deny any further questions with discharge and discharge plan. Some parts of this dictation were generated by voice recognition software and may contain typographical and/or grammatical inaccuracies. Differential Diagnosis Differential Diagnosis: Differential diagnostic considerations for upper respiratory infection include upper respiratory infection, croup, otitis media, sinusitis, viral infection, bronchitis, influenza, pharyngitis, strep, uvulitis.? Lab Data Labs: Lab Results 07/08/25 Range/Units 15:40 POC Grp A Strep Screen Negative (Negative) review Discharge Plan Discharge Clinical Impression: Sinus congestion Pharyngitis Qualifiers: Pharyngitis/tonsillitis etiology: unspecified etiology Qualified Code(s): J02.9 - Acute pharyngitis, unspecified Patient Disposition: Home Condition: Stable Instructions: Antibiotic Form, Pharyngitis (ED), Viral Syndrome (ED) Additional Instructions: Your rapid strep swab was negative today at [facility]. A throat culture will be sent to the laboratory for further testing. If the test is positive, you will receive a phone call within 48 hours and an appropriate antibiotic will be initiated at that time. Your symptoms are likely due to a viral illness, which is not treated with antibiotics. Typically viral infections last 7-10 days, can linger for couple of weeks. It is very important to treat your symptoms. Drink plenty of water, Gatorade, Pedialyte, ice pops or Jell-O. -Alternate Tylenol and Motrin per package directions for fever or pain. You can alternate every 4 hours -Antihistamine medication such as Zyrtec/Claritin during the day can help improve symptoms. -doing daily nasal irrigations can help relieve pressure your sinuses. Things like a Neti pot -Use Flonase twice a day for 5 days then daily to help reduce the inflammation and dry up your sinuses. -You can also use Mucinex. Be sure to drink plenty of water with this medication at least 8 ounces with every dose and it is important to drink 8 to 10 glasses of water per day. Water is a natural decongestant -Eat and drink things that are easy to swallow, like tea or soup, or popsicles. -Oral rinses such as: Salt water gargles and/or may use topical anesthetic (eg. Chloraseptic spray) or lozenges to relieve dryness or throat pain). -Frequent hand washing or hand aeronautics teacher is one of the best ways to prevent spread of infection. -Using a vaporizer or humidifier at night will also help thin secretions and help with coughing up phlegm. -Follow up with primary care provider in 7-10 days if condition is not improving - For new or worsening symptoms go directly to the nearest ER Patient Language: Czech Prescriptions: No Action acetaminophen [Tylenol Extra Strength] 500 mg tablet 1,000 mg PO TID PRN (Reason: pain) Qty: 30 0RF Follow-up/Referrals: Lalito Baldwin MD [Primary Care Provider, Family Practice] Stand Alone Forms: Work/School Release IP Time of Disposition: 15:41
[2025-07-08 15:34] VITALS: BP 148/98; PULSE 84; RESP 16; TEMP 36.3; O2SAT 100
[2025-07-08 15:42] LABS: EDSTREPNEGPOS1 Negative (Negative)
== END 2025-07-08 15:44 | disposition home or self-care (01) ==
PROVIDERS: Emergency Provider Nurse Practitioner; PCP Family Medicine
DX: J02.9 Acute pharyngitis, unspecified (principal); J34.89 Other specified disorders of nose and nasal sinuses
CPT/HCPCS: 87081; 87880; 99213; G0463